=== PATIENT | male | born 1975 | race Caucasian/White ===

== ENCOUNTER 2025-01-27 15:16 | Outpatient (REF) | payer BC, SELFPAY ==
[2025-02-01 14:39] LABS: DPYD Phenotype Normal metabolizer; DPYD Total Activity Score 2
== END 2025-01-27 15:17 | disposition home or self-care (01) ==
LOC: LBN 15:16
PROVIDERS: PCP Nurse Practitioner Family; Visit Provider Internal Medicine Hematology & Oncology
DX: C18.2 Malignant neoplasm of ascending colon (principal)
CPT/HCPCS: 81232

== ENCOUNTER 2025-01-29 00:49 | Outpatient (RCR) | payer BC, SELFPAY ==
[2025-01-27] MEDS: Normal Saline Flush 10 ML SYR IVP (09:42)
[2025-01-27 10:03] LABS: Abs Immature Grans 0.02 10^3/uL (0.0-0.06); Absolute Basophil Count 0.06 10^3/uL (0.0-0.2); Absolute Eosinophil Count 0.13 10^3/uL (0.0-0.7); Absolute Lymphocyte Count 1.77 10^3/uL (1.2-3.4); Absolute Monocyte Count 0.67 10^3/uL (0.1-0.8); Absolute Neutrophil Count 4.08 10^3/uL (1.2-6.7); Basophils % 0.9 %; Eosinophils % 1.9 %; HCT 46.1 % (40.0-50.0); HGB 15.5 g/dL (13.5-17.5); Immature Grans % 0.3 %; Lymphocytes % 26.3 %; MCHC 33.6 % (32.0-36.0); MCV 86 fL (80-95); MPV 9.1 fL (8.0-11.0); Neutrophils % 60.6 %; Platelet Count 283 10^3/uL (130-400); RBC 5.35 10^6/uL (4.36-5.78); RDW 13.2 % (11.8-14.1); RDW-SD 41.3 fL; WBC 6.73 10^3/uL (4.4-10.8)
[2025-01-27 10:26] LABS: ALT 41 U/L (16-63); AST 24 U/L (15-37); Albumin 3.8 g/dL (3.4-5.0); Alkaline Phosphatase 62 U/L (46-116); Anion Gap 4.4 mmol/L (3-11); BUN 20 mg/dL (7-18); Bilirubin, Total 0.6 mg/dL (0.2-1.0); CO2 30.6 mmol/L (21.0-32.0); CREATININE 0.9 mg/dL (0.70-1.30); Calcium 9.1 mg/dL (8.5-10.1); Chloride 102 mmol/L (98-107); Glucose 104 mg/dL (74-106); Potassium 4.1 mmol/L (3.5-5.1); Sodium 137 mmol/L (136-145); Total Protein 7.3 g/dL (6.4-8.2)
[2025-01-29 12:48] VITALS: BP 129/78; PULSE 67; TEMP 35.9
== END 2025-01-29 23:59 | disposition home or self-care (01) ==
LOC: INF 00:49
PROVIDERS: PCP Nurse Practitioner Family; Visit Provider Internal Medicine Hematology & Oncology
DX: C18.2 Malignant neoplasm of ascending colon (principal)
CPT/HCPCS: 36591; 80053; 85025

== ENCOUNTER 2025-02-26 00:05 | Outpatient (RCR) | payer BC, SELFPAY ==
[2025-02-10] MEDS: Normal Saline Flush 10 ML SYR IVP (09:31)
[2025-02-10 09:37] LABS: Abs Immature Grans 0.02 10^3/uL (0.0-0.06); Absolute Basophil Count 0.04 10^3/uL (0.0-0.2); Absolute Lymphocyte Count 1.79 10^3/uL (1.2-3.4); Absolute Monocyte Count 0.74 10^3/uL (0.1-0.8); Absolute Neutrophil Count 3.32 10^3/uL (1.2-6.7); Basophils % 0.7 %; Eosinophils % 1.7 %; HCT 46.3 % (40.0-50.0); HGB 15.2 g/dL (13.5-17.5); Immature Grans % 0.3 %; Lymphocytes % 29.8 %; MCH 28.2 pg (27.0-33.0); MCHC 32.8 % (32.0-36.0); MCV 86 fL (80-95); MPV 8.5 fL (8.0-11.0); Monocytes % 12.3 %; Neutrophils % 55.2 %; Platelet Count 243 10^3/uL (130-400); RBC 5.39 10^6/uL (4.36-5.78); RDW 13.3 % (11.8-14.1); RDW-SD 41.2 fL; WBC 6.01 10^3/uL (4.4-10.8)
[2025-02-10 10:31] LABS: ALT 45 U/L (16-63); AST 26 U/L (15-37); Albumin 3.8 g/dL (3.4-5.0); Alkaline Phosphatase 62 U/L (46-116); Anion Gap 6.3 mmol/L (3-11); BUN 22 mg/dL (7-18); Bilirubin, Total 0.8 mg/dL (0.2-1.0); CO2 29.7 mmol/L (21.0-32.0); Calcium 8.9 mg/dL (8.5-10.1); Chloride 103 mmol/L (98-107); Estimated GFR 92.26 (mL/min/1.73m2); Glucose 89 mg/dL (74-106); Potassium 3.9 mmol/L (3.5-5.1); Sodium 139 mmol/L (136-145); Total Protein 7.3 g/dL (6.4-8.2)
[2025-02-12 11:55] VITALS: BP 129/82; PULSE 88; RESP 17; TEMP 36.2; O2SAT 97
[2025-02-12] MEDS: Normal Saline Flush 5 ML SYR IVP (11:57)
[2025-02-24] MEDS: Normal Saline Flush 10 ML SYR IVP (08:22)
[2025-02-24 08:36] LABS: Abs Immature Grans 0.01 10^3/uL (0.0-0.06); Absolute Basophil Count 0.06 10^3/uL (0.0-0.2); Absolute Eosinophil Count 0.18 10^3/uL (0.0-0.7); Absolute Lymphocyte Count 1.44 10^3/uL (1.2-3.4); Absolute Monocyte Count 0.74 10^3/uL (0.1-0.8); Basophils % 0.9 %; Eosinophils % 2.8 %; HCT 45.9 % (40.0-50.0); HGB 15.3 g/dL (13.5-17.5); Immature Grans % 0.2 %; Lymphocytes % 22.7 %; MCH 28.5 pg (27.0-33.0); MCHC 33.3 % (32.0-36.0); MCV 86 fL (80-95); MPV 8.7 fL (8.0-11.0); Monocytes % 11.7 %; Neutrophils % 61.7 %; Platelet Count 169 10^3/uL (130-400); RBC 5.37 10^6/uL (4.36-5.78); RDW 13.5 % (11.8-14.1); RDW-SD 41.7 fL; WBC 6.33 10^3/uL (4.4-10.8)
[2025-02-24 09:22] LABS: ALT 43 U/L (16-63); AST 23 U/L (15-37); Albumin 3.6 g/dL (3.4-5.0); Alkaline Phosphatase 59 U/L (46-116); Anion Gap 6.2 mmol/L (3-11); BUN 15 mg/dL (7-18); Bilirubin, Total 0.7 mg/dL (0.2-1.0); CO2 28.8 mmol/L (21.0-32.0); Calcium 8.8 mg/dL (8.5-10.1); Chloride 104 mmol/L (98-107); Estimated GFR 92.26 (mL/min/1.73m2); Glucose 118 mg/dL (74-106); Potassium 4.1 mmol/L (3.5-5.1); Sodium 139 mmol/L (136-145)
[2025-02-24 18:21] LABS: CEA <0.5 ng/mL (See Note)
== END 2025-02-28 23:59 | disposition home or self-care (01) ==
LOC: INF 00:05
PROVIDERS: PCP Nurse Practitioner Family; Visit Provider Internal Medicine Hematology & Oncology
DX: C18.2 Malignant neoplasm of ascending colon (principal); Z45.2 Encounter for adjustment and management of vascular access device
CPT/HCPCS: 36591; 80053; 96523; 82378; 85025

== ENCOUNTER 2025-03-26 00:10 | Outpatient (RCR) | payer BC, SELFPAY ==
[2025-03-10 10:44] LABS: Abs Immature Grans 0.01 10^3/uL (0.0-0.06); HCT 44.3 % (40.0-50.0); HGB 15.0 g/dL (13.5-17.5); Immature Grans % 0.2 %; MCH 29.0 pg (27.0-33.0); MCHC 33.9 % (32.0-36.0); MCV 86 fL (80-95); MPV 8.6 fL (8.0-11.0); Platelet Count 153 10^3/uL (130-400); RBC 5.18 10^6/uL (4.36-5.78); RDW 14.2 % (11.8-14.1); RDW-SD 43.3 fL; WBC 4.58 10^3/uL (4.4-10.8)
[2025-03-10 11:05] LABS: ALT 52 U/L (16-63); AST 38 U/L (15-37); Albumin 3.5 g/dL (3.4-5.0); Alkaline Phosphatase 68 U/L (46-116); Anion Gap 6.4 mmol/L (3-11); BUN 17 mg/dL (7-18); Bilirubin, Total 0.6 mg/dL (0.2-1.0); CO2 29.6 mmol/L (21.0-32.0); Calcium 9.0 mg/dL (8.5-10.1); Chloride 103 mmol/L (98-107); Estimated GFR 108.49 (mL/min/1.73m2); Glucose 96 mg/dL (74-106); Potassium 4.2 mmol/L (3.5-5.1); Sodium 139 mmol/L (136-145); Total Protein 7.3 g/dL (6.4-8.2)
[2025-03-10] MEDS: Normal Saline Flush 10 ML SYR IVP (11:09)
[2025-03-10 18:42] LABS: CEA <0.5 ng/mL (See Note)
[2025-03-12 12:45] VITALS: BP 131/82; PULSE 57; RESP 16; TEMP 34.9; O2SAT 96
[2025-03-12] MEDS: Normal Saline Flush 10 ML SYR IVP (12:58)
[2025-03-24] MEDS: Normal Saline Flush 10 ML SYR IVP (10:18)
[2025-03-24 11:10] LABS: Abs Immature Grans 0.00 10^3/uL (0.0-0.06); HCT 45.1 % (40.0-50.0); HGB 15.2 g/dL (13.5-17.5); Immature Grans % 0.0 %; MCH 29.1 pg (27.0-33.0); MCHC 33.7 % (32.0-36.0); MCV 86 fL (80-95); MPV 9.8 fL (8.0-11.0); Platelet Count 114 10^3/uL (130-400); RBC 5.23 10^6/uL (4.36-5.78); RDW 15.2 % (11.8-14.1); RDW-SD 46.0 fL; WBC 3.50 10^3/uL (4.4-10.8)
[2025-03-24 11:30] LABS: ALT 67 U/L (16-63); AST 45 U/L (15-37); Albumin 3.5 g/dL (3.4-5.0); Alkaline Phosphatase 73 U/L (46-116); Anion Gap 7.4 mmol/L (3-11); BUN 19 mg/dL (7-18); Bilirubin, Total 1.1 mg/dL (0.2-1.0); CO2 29.6 mmol/L (21.0-32.0); Calcium 9.1 mg/dL (8.5-10.1); Chloride 101 mmol/L (98-107); Estimated GFR 92.26 (mL/min/1.73m2); Glucose 101 mg/dL (74-106); Potassium 4.0 mmol/L (3.5-5.1); Sodium 138 mmol/L (136-145); Total Protein 7.2 g/dL (6.4-8.2)
[2025-03-24 19:23] LABS: CEA 0.8 ng/mL (See Note)
[2025-03-26 13:00] VITALS: BP 132/82; PULSE 63; RESP 15; TEMP 36.5; O2SAT 98
[2025-03-26] MEDS: Normal Saline Flush 10 ML SYR IVP (13:03)
== END 2025-03-31 23:59 | disposition home or self-care (01) ==
LOC: INF 00:10
PROVIDERS: PCP Nurse Practitioner Family; Visit Provider Internal Medicine Hematology & Oncology
DX: Z45.2 Encounter for adjustment and management of vascular access device (principal); C18.2 Malignant neoplasm of ascending colon
CPT/HCPCS: 36591; 80053; 96523; 82378; 85025

== ENCOUNTER 2025-04-21 00:40 | Outpatient (RCR) | payer BC, SELFPAY ==
[2025-04-07] MEDS: Normal Saline Flush 10 ML SYR IVP (09:01)
[2025-04-07 09:16] LABS: Abs Immature Grans 0.01 10^3/uL (0.0-0.06); HCT 41.9 % (40.0-50.0); HGB 14.4 g/dL (13.5-17.5); Immature Grans % 0.2 %; MCH 29.8 pg (27.0-33.0); MCHC 34.4 % (32.0-36.0); MCV 87 fL (80-95); MPV 9.5 fL (8.0-11.0); Platelet Count 115 10^3/uL (130-400); RBC 4.84 10^6/uL (4.36-5.78); RDW 15.9 % (11.8-14.1); RDW-SD 48.8 fL; WBC 4.39 10^3/uL (4.4-10.8)
[2025-04-07 09:33] LABS: ALT 53 U/L (16-63); AST 43 U/L (15-37); Albumin 3.5 g/dL (3.4-5.0); Alkaline Phosphatase 79 U/L (46-116); Anion Gap 7.3 mmol/L (3-11); BUN 17 mg/dL (7-18); Bilirubin, Total 1.1 mg/dL (0.2-1.0); CO2 28.7 mmol/L (21.0-32.0); Calcium 8.8 mg/dL (8.5-10.1); Chloride 102 mmol/L (98-107); Estimated GFR 92.26 (mL/min/1.73m2); Glucose 105 mg/dL (74-106); Potassium 3.9 mmol/L (3.5-5.1); Sodium 138 mmol/L (136-145); Total Protein 7.1 g/dL (6.4-8.2)
[2025-04-07 19:02] LABS: CEA 0.9 ng/mL (See Note)
[2025-04-21] MEDS: Normal Saline Flush 10 ML SYR IVP (09:55)
[2025-04-21 10:06] LABS: Abs Immature Grans 0.04 10^3/uL (0.0-0.06); HCT 44.5 % (40.0-50.0); HGB 15.1 g/dL (13.5-17.5); Immature Grans % 0.7 %; MCH 30.1 pg (27.0-33.0); MCHC 33.9 % (32.0-36.0); MCV 89 fL (80-95); MPV 9.4 fL (8.0-11.0); Platelet Count 158 10^3/uL (130-400); RBC 5.02 10^6/uL (4.36-5.78); RDW 16.3 % (11.8-14.1); RDW-SD 52.9 fL; WBC 5.37 10^3/uL (4.4-10.8)
[2025-04-21 10:29] LABS: ALT 52 U/L (16-63); AST 41 U/L (15-37); Albumin 3.5 g/dL (3.4-5.0); Alkaline Phosphatase 77 U/L (46-116); Anion Gap 6.8 mmol/L (3-11); BUN 16 mg/dL (7-18); Bilirubin, Total 0.8 mg/dL (0.2-1.0); CO2 29.2 mmol/L (21.0-32.0); Calcium 8.9 mg/dL (8.5-10.1); Chloride 104 mmol/L (98-107); Estimated GFR 104.70 (mL/min/1.73m2); Glucose 122 mg/dL (74-106); Potassium 3.9 mmol/L (3.5-5.1); Sodium 140 mmol/L (136-145); Total Protein 7.1 g/dL (6.4-8.2)
[2025-04-21 19:30] LABS: CEA 1.0 ng/mL (See Note)
== END 2025-05-01 23:59 | disposition home or self-care (01) ==
LOC: INF 00:40
PROVIDERS: PCP Nurse Practitioner Family; Visit Provider Internal Medicine Hematology & Oncology
DX: Z45.2 Encounter for adjustment and management of vascular access device (principal); C18.2 Malignant neoplasm of ascending colon
CPT/HCPCS: 36591; 80053; 82378; 85025

== ENCOUNTER 2025-05-21 00:08 | Outpatient (RCR) | payer BC, SELFPAY ==
[2025-05-05] MEDS: Normal Saline Flush 10 ML SYR IVP (08:45)
[2025-05-05 09:38] LABS: Abs Immature Grans 0.02 10^3/uL (0.0-0.06); HCT 44.7 % (40.0-50.0); HGB 15.0 g/dL (13.5-17.5); Immature Grans % 0.4 %; MCH 30.2 pg (27.0-33.0); MCHC 33.6 % (32.0-36.0); MCV 90 fL (80-95); MPV 9.5 fL (8.0-11.0); Platelet Count 204 10^3/uL (130-400); RBC 4.97 10^6/uL (4.36-5.78); RDW 15.1 % (11.8-14.1); RDW-SD 49.7 fL; WBC 5.39 10^3/uL (4.4-10.8)
[2025-05-05 09:53] LABS: ALT 48 U/L (16-63); AST 34 U/L (15-37); Albumin 3.4 g/dL (3.4-5.0); Alkaline Phosphatase 73 U/L (46-116); Anion Gap 4.4 mmol/L (3-11); BUN 16 mg/dL (7-18); Bilirubin, Total 0.6 mg/dL (0.2-1.0); CO2 29.6 mmol/L (21.0-32.0); Calcium 8.6 mg/dL (8.5-10.1); Chloride 104 mmol/L (98-107); Glucose 144 mg/dL (74-106); Potassium 3.8 mmol/L (3.5-5.1); Sodium 138 mmol/L (136-145); Total Protein 7.1 g/dL (6.4-8.2)
[2025-05-05 18:11] LABS: CEA <0.5 ng/mL (See Note)
[2025-05-07 11:00] VITALS: BP 132/80; PULSE 70; RESP 16; TEMP 36.1; O2SAT 98
[2025-05-19 09:51] LABS: Abs Immature Grans 0.02 10^3/uL (0.0-0.06); HCT 44.7 % (40.0-50.0); HGB 15.2 g/dL (13.5-17.5); Immature Grans % 0.3 %; MCH 30.2 pg (27.0-33.0); MCHC 34.0 % (32.0-36.0); MCV 89 fL (80-95); MPV 8.8 fL (8.0-11.0); Platelet Count 211 10^3/uL (130-400); RBC 5.03 10^6/uL (4.36-5.78); RDW 14.2 % (11.8-14.1); RDW-SD 46.5 fL; WBC 6.44 10^3/uL (4.4-10.8)
[2025-05-19 10:08] LABS: ALT 48 U/L (16-63); AST 32 U/L (15-37); Albumin 3.7 g/dL (3.4-5.0); Alkaline Phosphatase 74 U/L (46-116); Anion Gap 3.4 mmol/L (3-11); BUN 18 mg/dL (7-18); Bilirubin, Total 0.9 mg/dL (0.2-1.0); CO2 31.6 mmol/L (21.0-32.0); Calcium 8.9 mg/dL (8.5-10.1); Chloride 102 mmol/L (98-107); Glucose 110 mg/dL (74-106); Potassium 4.1 mmol/L (3.5-5.1); Sodium 137 mmol/L (136-145); Total Protein 7.4 g/dL (6.4-8.2)
[2025-05-19] MEDS: Normal Saline Flush 10 ML SYR IVP (14:39)
[2025-05-19 18:17] LABS: CEA <0.5 ng/mL (See Note)
[2025-05-21 14:33] VITALS: BP 132/80; PULSE 70; RESP 16; TEMP 36.1; O2SAT 98
[2025-05-21] MEDS: Normal Saline Flush 10 ML SYR IVP (14:35)
== END 2025-05-31 23:59 | disposition home or self-care (01) ==
LOC: INF 00:08
PROVIDERS: Nurse Practitioner Family; PCP Nurse Practitioner Family; Visit Provider Internal Medicine Hematology & Oncology
DX: C18.2 Malignant neoplasm of ascending colon (principal); Z45.2 Encounter for adjustment and management of vascular access device
CPT/HCPCS: 36591; 80053; 96523; 82378; 85025

== ENCOUNTER 2025-06-30 00:05 | Outpatient (RCR) | payer BC, SELFPAY ==
[2025-06-02] MEDS: Normal Saline Flush 10 ML SYR IVP (10:20)
[2025-06-02 10:40] LABS: Abs Immature Grans 0.03 10^3/uL (0.0-0.06); HCT 45.8 % (40.0-50.0); HGB 15.6 g/dL (13.5-17.5); Immature Grans % 0.5 %; MCH 30.5 pg (27.0-33.0); MCHC 34.1 % (32.0-36.0); MCV 90 fL (80-95); MPV 9.4 fL (8.0-11.0); Platelet Count 196 10^3/uL (130-400); RBC 5.12 10^6/uL (4.36-5.78); RDW 14.0 % (11.8-14.1); RDW-SD 45.5 fL; WBC 6.05 10^3/uL (4.4-10.8)
[2025-06-02 10:56] LABS: ALT 41 U/L (16-63); AST 29 U/L (15-37); Albumin 3.7 g/dL (3.4-5.0); Alkaline Phosphatase 65 U/L (46-116); Anion Gap 6.5 mmol/L (3-11); BUN 19 mg/dL (7-18); Bilirubin, Total 0.8 mg/dL (0.2-1.0); CO2 30.5 mmol/L (21.0-32.0); Calcium 8.8 mg/dL (8.5-10.1); Chloride 103 mmol/L (98-107); Glucose 109 mg/dL (74-106); Potassium 4.3 mmol/L (3.5-5.1); Sodium 140 mmol/L (136-145); Total Protein 7.3 g/dL (6.4-8.2)
[2025-06-02 17:50] LABS: CEA <0.5 ng/mL (See Note)
[2025-06-04] MEDS: Normal Saline Flush 10 ML SYR IVP (10:52)
[2025-06-16] MEDS: Normal Saline Flush 10 ML SYR IVP (11:42)
[2025-06-16 11:57] LABS: Abs Immature Grans 0.01 10^3/uL (0.0-0.06); HCT 44.4 % (40.0-50.0); HGB 15.3 g/dL (13.5-17.5); Immature Grans % 0.2 %; MCH 30.7 pg (27.0-33.0); MCHC 34.5 % (32.0-36.0); MCV 89 fL (80-95); MPV 8.8 fL (8.0-11.0); Platelet Count 188 10^3/uL (130-400); RBC 4.99 10^6/uL (4.36-5.78); RDW 13.7 % (11.8-14.1); RDW-SD 44.2 fL; WBC 5.10 10^3/uL (4.4-10.8)
[2025-06-16 12:15] LABS: ALT 54 U/L (16-63); AST 45 U/L (15-37); Albumin 3.7 g/dL (3.4-5.0); Alkaline Phosphatase 63 U/L (46-116); Anion Gap 7.4 mmol/L (3-11); BUN 20 mg/dL (7-18); Bilirubin, Total 1.1 mg/dL (0.2-1.0); CO2 29.6 mmol/L (21.0-32.0); Calcium 8.8 mg/dL (8.5-10.1); Chloride 103 mmol/L (98-107); Glucose 97 mg/dL (74-106); Potassium 3.9 mmol/L (3.5-5.1); Sodium 140 mmol/L (136-145); Total Protein 7.2 g/dL (6.4-8.2)
[2025-06-16 22:37] LABS: CEA <0.5 ng/mL (See Note)
[2025-06-30] MEDS: Normal Saline Flush 10 ML SYR IVP (07:28)
[2025-06-30 07:35] LABS: Abs Immature Grans 0.02 10^3/uL (0.0-0.06); HCT 44.7 % (40.0-50.0); HGB 15.7 g/dL (13.5-17.5); Immature Grans % 0.3 %; MCH 31.7 pg (27.0-33.0); MCHC 35.1 % (32.0-36.0); MCV 90 fL (80-95); MPV 8.7 fL (8.0-11.0); Platelet Count 181 10^3/uL (130-400); RBC 4.96 10^6/uL (4.36-5.78); RDW 13.5 % (11.8-14.1); RDW-SD 44.1 fL; WBC 6.37 10^3/uL (4.4-10.8)
[2025-06-30 07:55] LABS: ALT 44 U/L (16-63); AST 30 U/L (15-37); Albumin 3.7 g/dL (3.4-5.0); Alkaline Phosphatase 57 U/L (46-116); Anion Gap 5.1 mmol/L (3-11); BUN 17 mg/dL (7-18); Bilirubin, Total 1.1 mg/dL (0.2-1.0); CO2 29.9 mmol/L (21.0-32.0); Calcium 8.8 mg/dL (8.5-10.1); Chloride 103 mmol/L (98-107); Glucose 102 mg/dL (74-106); Potassium 4.2 mmol/L (3.5-5.1); Sodium 138 mmol/L (136-145); Total Protein 7.2 g/dL (6.4-8.2)
[2025-07-01 09:31] LABS: CEA <0.5 ng/mL (See Note)
== END 2025-07-01 23:59 | disposition home or self-care (01) ==
LOC: INF 00:05
PROVIDERS: Nurse Practitioner Family; PCP Nurse Practitioner Family; Visit Provider Internal Medicine Hematology & Oncology
DX: C18.2 Malignant neoplasm of ascending colon (principal); Z45.2 Encounter for adjustment and management of vascular access device
CPT/HCPCS: 36591; 80053; 96523; 82378; 85025

== ENCOUNTER 2025-07-16 00:57 | Outpatient (RCR) | payer BC, SELFPAY ==
[2025-07-02 10:38] VITALS: BP 126/79; PULSE 58; RESP 14; TEMP 36.6; O2SAT 98
[2025-07-14] MEDS: Normal Saline Flush 10 ML SYR IVP (13:00)
[2025-07-14 13:15] LABS: Abs Immature Grans 0.02 10^3/uL (0.0-0.06); HCT 44.8 % (40.0-50.0); HGB 15.8 g/dL (13.5-17.5); Immature Grans % 0.3 %; MCH 31.5 pg (27.0-33.0); MCHC 35.3 % (32.0-36.0); MCV 89 fL (80-95); MPV 8.8 fL (8.0-11.0); Platelet Count 178 10^3/uL (130-400); RBC 5.01 10^6/uL (4.36-5.78); RDW 13.6 % (11.8-14.1); RDW-SD 43.8 fL; WBC 6.00 10^3/uL (4.4-10.8)
[2025-07-14 13:35] LABS: ALT 31 U/L (10-49); AST 29 U/L (<34); Albumin 4.2 g/dL (3.4-5.0); Alkaline Phosphatase 52 U/L (46-116); Anion Gap 7.6 mmol/L (3-11); BUN 17 mg/dL (9-23); Bilirubin, Total 1.10 mg/dL (0.2-1.2); CO2 28.4 mmol/L (20.0-31.0); Calcium 8.7 mg/dL (8.3-10.6); Chloride 104 mmol/L (98-107); Glucose 131 mg/dL (74-106); Potassium 3.8 mmol/L (3.5-5.1); Sodium 140 mmol/L (136-145); Total Protein 6.9 g/dL (5.7-8.2)
[2025-07-14 22:26] LABS: CEA <0.5 ng/mL (See Note)
[2025-07-16 18:18] VITALS: BP 126/79; PULSE 58; RESP 14; TEMP 36.6; O2SAT 98
[2025-07-16] MEDS: Normal Saline Flush 10 ML SYR IVP (18:20)
== END 2025-07-31 23:59 | disposition home or self-care (01) ==
LOC: INF 00:57
PROVIDERS: PCP Nurse Practitioner Family; Visit Provider Internal Medicine Hematology & Oncology
DX: Z45.2 Encounter for adjustment and management of vascular access device (principal); C18.2 Malignant neoplasm of ascending colon
CPT/HCPCS: 36591; 80053; 96523; 82378; 85025

== ENCOUNTER 2025-08-29 00:33 | Outpatient (RCR) | payer BC, SELFPAY ==
[2025-08-02] MEDS: Normal Saline Flush 10 ML SYR IVP (13:00)
[2025-08-02 13:23] LABS: Abs Immature Grans 0.03 10^3/uL (0.0-0.06); HCT 44.7 % (40.0-50.0); HGB 15.7 g/dL (13.5-17.5); Immature Grans % 0.5 %; MCH 31.4 pg (27.0-33.0); MCHC 35.1 % (32.0-36.0); MCV 89 fL (80-95); MPV 9.1 fL (8.0-11.0); Platelet Count 194 10^3/uL (130-400); RBC 5.00 10^6/uL (4.36-5.78); RDW 13.6 % (11.8-14.1); RDW-SD 43.9 fL; WBC 6.28 10^3/uL (4.4-10.8)
[2025-08-02 13:53] LABS: ALT 35 U/L (10-49); AST 31 U/L (<34); Albumin 4.3 g/dL (3.2-5.0); Alkaline Phosphatase 50 U/L (46-116); Anion Gap 5.8 mmol/L (3-11); BUN 13 mg/dL (9-23); Bilirubin, Total 1.20 mg/dL (0.2-1.2); CO2 30.2 mmol/L (20.0-31.0); Calcium 9.3 mg/dL (8.3-10.6); Chloride 104 mmol/L (98-107); Glucose 107 mg/dL (74-106); Potassium 3.9 mmol/L (3.5-5.1); Sodium 140 mmol/L (136-145); Total Protein 7.1 g/dL (5.7-8.2)
[2025-08-03 18:37] LABS: CEA <0.5 ng/mL (See Note)
[2025-08-29] MEDS: Normal Saline Flush 10 ML SYR IVP (13:07)
== END 2025-08-31 23:59 | disposition home or self-care (01) ==
LOC: INF 00:33
PROVIDERS: Nurse Practitioner Family; PCP Nurse Practitioner Family; Visit Provider Internal Medicine Hematology & Oncology
DX: Z45.2 Encounter for adjustment and management of vascular access device (principal); C18.2 Malignant neoplasm of ascending colon
CPT/HCPCS: 36591; 80053; 82378; 82565; 85025